=== PATIENT | female | born 1935 | race Caucasian/White ===

== ENCOUNTER 2020-12-04 16:40 | Emergency (ER) | payer MEDICARE ==
[~2020-12-04] VITALS: Ht 167.6 cm; Wt 102.1 kg
[~2020-12-04 16:40] MED LIST: ATOR20 PO; ATORVASTATIN CA20 MG PO; Acerola C500 MG PO; CALCITRIOL0.25 MC4 PO; CEFAZOLIN SODIUM1 GM IV; CETI5 PO; DILT30 PO; ELIQUIS5 M3 PO; FAMO20 PO; FUROSEMIDE20 MG PO; JUVEN PACKET1 EAC3 PO; KAPSPARGO SPRI100 MG PO; PANT20 PO; PANTOPRAZOLE SO40 M2 PO; VANCOCIN HCL125 MG PO; VISBIOME 112.51 EACH PO
== END 2020-12-05 01:40 | disposition home or self-care (01) ==
LOC: ER 16:40
DX: N18.30 Chronic kidney disease, stage 3 unspecified (principal); D63.1 Anemia in chronic kidney disease; I48.20 Chronic atrial fibrillation, unspecified; E78.5 Hyperlipidemia, unspecified; Z79.899 Other long term (current) drug therapy; Z88.6 Allergy status to analgesic agent; Z88.8 Allergy status to other drugs, medicaments and biological substances; Z91.048 Other nonmedicinal substance allergy status
CPT/HCPCS: 36430; 86850; 86900; 86901; 86923; 93005; 93010; 99284-25; J7030; P9016